=== PATIENT | male | born 1960 | race Caucasian/White ===

== ENCOUNTER 2019-10-17 03:30 | Observation (INO) | payer BC ==
[2019-10-17 04:23] LABS: #Eosinphils 0.3 thou/uL (0.0-0.7); #Lymphocytes 1.6 thou/uL (1.20-3.40); #Monocytes 1.1 thou/uL (0.11-0.59); #Neutrophils 11.8 thou/uL (1.40-6.50); %Basophils 0.3 % (0.0-1.0); %Eosinophils 1.8 % (0.0-10.0); %Lymphocytes 10.5 % (21.0-51.0); %Monocytes 7.4 % (0.0-10.0); %Neutrophils 79.9 % (42.0-75.0); Mean Corpuscular HGB CONC 32.8 g/dL (32.0-36.0); Mean Corpuscular Hemoglobin 31.5 pg (27.0-31.0); Mean Corpuscular Volume 95.9 fL (78.0-98.0); Mean Platelet Volume 6.9 fL (7.4-10.4); Platelet Count 240 thou/uL (130-400); RBC Distribution Width 12.8 % (11.5-14.5); Red Blood Cell (RBC) Count 4.13 mill/uL (4.70-6.10); White Blood Cell (WBC) Count 14.7 thou/uL (4.8-10.8)
[2019-10-17] MEDS ORDERED: Fentanyl 100 MCG/2 ML VIAL ONE (04:40)
[2019-10-17 04:45] LABS: ALT (SGPT) 23 U/L (8-55); AST (SGOT) 16 U/L (5-34); Albumin 3.6 g/dL (3.5-5.0); Alkaline Phosphatase 72 U/L (40-110); Anion Gap 13 mmol/L (10-20); BUN (Urea Nitrogen) 19 mg/dL (8.4-25.7); Bilirubin, Total 0.5 mg/dL (0.2-1.2); CK (CPK) 39 U/L (30-200); Calc. Creatinine Clearance 0 mL/min (70-130); Calcium 8.5 mg/dL (7.8-10.44); Carbon Dioxide 24 mmol/L (22-29); Chloride 106 mmol/L (98-107); Estimated GFR-MDRD 88; Globulin 2.1 g/dL (2.4-3.5); Glucose 93 mg/dL (70-105); Lipase 15 U/L (8-78); Potassium 3.8 mmol/L (3.5-5.1); Protein, Total 5.7 g/dL (6.0-8.3); Sodium 139 mmol/L (136-145)
[2019-10-17] MEDS ORDERED: Nitroglycerin 2% Ointment 1 INCH/1 GM Packet ONE (06:18)
--- NOTE | 2019-10-17 06:42 | PDOC.HHP ---
Hospitalist HPI - History of Present Illness chest pain History of Present Illness: Pateint is a 59 year old male with PMH HTN who presents to ED with acute onset L sided chest pain that awoke him from sleep, he was flown in by helicopter, pain began at 130am, improved with nitro by EMS, is still present at 3/10, no aggrevating or alleviating factors, no hisotry of CAD/cardiac history. had relatives with CAD. in ED here, tni negative, ekg reviewed NSR w/ RBBB 84 bpm no stemi. patient admitted for chest pain workup. of note ct performed, no acute findings that wuld cause this pain, however a gallstone seen and us abdomen was ordered. patient admitted to [facility] for further workup. BP was in 180s initially now improved. given ASA. Hospitalist ROS - Review of Systems Constitutional: denies: fever, chills Eyes: denies: pain, vision change ENT: denies: ear pain, mouth pain, mouth swelling Respiratory: denies: cough, dry, shortness of breath Cardiovascular: reports: chest pain. denies: palpitations, orthopnea Gastrointestinal: denies: nausea, vomiting Musculoskeletal: reports: shoulder pain (L shoulder). denies: neck pain Skin: denies: rash, lesions Neurological: denies: weakness, numbness All other systems reviewed; all pertinent +/- noted in HPI/Subj Hospitalist History - Past Medical History Other Medical History: htn - Past Surgical History Past Surgical History: reports: no pertinent history - Family History Other Family History: cad, pacemaker, valve replacement in 2nd degree relatives - Social History Smoking Status: Never smoker Alcohol: reports: Rare Drugs: reports: none - Exam General Appearance: NAD, awake alert Eye: PERRL, anicteric sclera ENT: normocephalic atraumatic, no oropharyngeal lesions, moist mucosa Neck: supple, symmetric, no JVD, no thyromegaly, no lymphadenopathy, no carotid bruit Heart: RRR, no murmur, no gallops, no rubs, normal peripheral pulses Respiratory: CTAB, no wheezes, no rales, no ronchi, normal chest expansion, no tachypnea, normal percussion Gastrointestinal: soft, non-tender, non-distended, normal bowel sounds, no palpable masses, no hepatomegaly, no splenomegaly, no bruit Extremities: no cyanosis, no clubbing, no edema Skin: normal turgor, no lesions, no rashes Neurological: cranial nerve grossly intact, normal sensation to touch, no weakness, no focal deficits, no new deficit Musculoskeletal: normal tone, normal strength, no muscle wasting Psychiatric: normal affect, normal behavior, A&O x 3 Hospitalist Results - Labs Result Diagrams: 10/17/19 04:14 10/17/19 04:14 Lab results: WBC 14.7 thou/uL (4.8-10.8) H 10/17/19 04:14 Hgb 13.0 g/dL (14.0-18.0) L 10/17/19 04:14 Hct 39.6 % (42.0-52.0) L 10/17/19 04:14 MCV 95.9 fL (78.0-98.0) 10/17/19 04:14 Plt Count 240 thou/uL (130-400) 10/17/19 04:14 Neutrophils % 79.9 % (42.0-75.0) H 10/17/19 04:14 Sodium 139 mmol/L (136-145) 10/17/19 04:14 Potassium 3.8 mmol/L (3.5-5.1) 10/17/19 04:14 Chloride 106 mmol/L (98-107) 10/17/19 04:14 Carbon Dioxide 24 mmol/L (22-29) 10/17/19 04:14 BUN 19 mg/dL (8.4-25.7) 10/17/19 04:14 Creatinine 0.88 mg/dL (0.7-1.3) 10/17/19 04:14 Glucose 93 mg/dL (70-105) 10/17/19 04:14 Calcium 8.5 mg/dL (7.8-10.44) 10/17/19 04:14 Total Bilirubin 0.5 mg/dL (0.2-1.2) 10/17/19 04:14 AST 16 U/L (5-34) 10/17/19 04:14 ALT 23 U/L (8-55) 10/17/19 04:14 Alkaline Phosphatase 72 U/L (40-110) 10/17/19 04:14 Creatine Kinase 39 U/L (30-200) 10/17/19 04:14 Troponin I 0.013 ng/mL (< 0.028) 10/17/19 04:14 B-Natriuretic Peptide Less than 10.0 pg/mL (0-100) 10/17/19 04:14 Serum Total Protein 5.7 g/dL (6.0-8.3) L 10/17/19 04:14 Albumin 3.6 g/dL (3.5-5.0) 10/17/19 04:14 Lipase 15 U/L (8-78) 10/17/19 04:14 - EKG Interpretation EKG: reviewed, NSR, RBBB, 84 bpm, no acute ST changes Hospitalist H&P A/P - Plan Plan: 59M admitted for: # chest pain - admit to telemetry - consult cardiology given continued chest pain, NPO - nitro patch - trend enzymes - ASA, statin, beta ling - control BP, nitro will probably help - telemetry - echo - gallstone on CT, follow up us abdomen though exam very benign and story not very consistent with gallbladder pain
--- NOTE | 2019-10-17 06:54 | CT ---
CTA THORAX WITH IV CONTRAST AND PE PROTOCOL AND 3D REFORMATTED IMAGING: INDICATIONS: A 59-year-old male with left sided chest pain. Concern for possible pulmonary embolus. FINDINGS: No central or segmental pulmonary embolus is evident. There is mild enlargement of the pulmonary tenzin marek, which may reflect sequela of underlying secondary pulmonary artery hypertension. There is mild centrilobular emphysema. There are areas of subsegmental volume loss involving both lower lobes, seen in a predominantly dependent fashion at the posterior aspects of both lower lobes. No air space cons olidation, pleural effusion or pneumothorax is evident. No enlarged lymph nodes are evident. There ar e coronary artery and thoracic aortic calcifications. The visualized upper abdomen demonstrates jaqueline l adrenal glands. There is a small punctate density within the gallbladder body, suspicious for a sma ll stone. No acute osseous abnormality is demonstrated. There is mild scattered degenerative and oste oarthritic change. IMPRESSION: 1. No central or segmental pulmonary embolus. 2. Mild emphysema. 3. Slight enlargement of the pulmonary arterial tree, which can be seen with secondary pulmonary tenzin ry hypertension. 4. Nonspecific subsegmental volume loss within both lower lobes. 5. Suspected cholelithiasis. POS: BH
[2019-10-17] MEDS ORDERED: Ondansetron ODT 4 MG TAB SL PRN (06:55)
[2019-10-17] MEDS ORDERED: Ondansetron PF 4 MG/2 ML Vial IVP PRN (06:55)
[2019-10-17] MEDS ORDERED: Sodium Chloride 0.9% 1,000 ML IV SCH (07:00)
[2019-10-17 07:47] LABS: Troponin I 0.018 ng/mL (< 0.028)
--- NOTE | 2019-10-17 07:51 | RAD ---
RADIOGRAPH CHEST 1 VIEW: DATE: 10/17/2019 TIME: 3:50 AM HISTORY: 59-year-old male with chest pain COMPARISON: none FINDINGS: Shallow inspiration. Nonspecific mild transverse linear densities at bilateral lung bases, probably s ubsegmental atelectasis or chronic changes. No consolidation. Upper lobes are relatively clear. No pneumothorax. Possible mild blunting of lateral costophrenic angles. Possible cardiomegaly.. IMPRESSION: 1. Limited study because of hypoinflated lungs. 2. Nonspecific mild changes at lung bases and lateral costophrenic angles. 3. A lateral view would be useful.
[2019-10-17] MEDS: Metoprolol Tartrate 25 MG TAB PO SCH ×2 (09:14→20:33)
[2019-10-17] MEDS: Aspirin 325 mg Enteric Coated Tablet PO SCH (09:14)
[2019-10-17 09:37] VITALS: BMI 29.9
[2019-10-17] MEDS: Morphine 2 MG/ML SYRINGE SLOW IVP PRN ×3 (10:05→20:34)
[2019-10-17] MEDS ORDERED: Iopamidol 370 76% 100 ML VIAL ONE (10:06)
[2019-10-17 10:42] LABS: Troponin I 0.016 ng/mL (< 0.028)
[2019-10-17] MEDS: Enoxaparin Sodium 40 MG/0.4 ML SYRINGE SC SCH (12:34)
--- NOTE | 2019-10-17 14:16 | CON ---
DATE OF CONSULTATION: 10/17/2019 REASON FOR CONSULTATION: Chest pain. HISTORY OF PRESENT ILLNESS: Mr. Ramirez is a very pleasant 59-year-old white gentleman, who comes to the hospital for chest pain. He was woken up at 1:30 a.m. overnight with chest pain. It was in the midsternal area and then it went up to his left shoulder. He thought he just slept on the side and had either pinched a nerve or pulled a muscle. Pain just continued to get worse and worse and worse, so he decided to come in as the pain was at a point 10/10. He received nitroglycerin spray and a nitroglycerin patch on the way in and he states that helped his pain, but his pain has not really gone away. He was admitted and ruled out with 3 negative troponins. BNP was undetectable. Cardiology has been consulted. On my evaluation, his pain is about 1/10. It is worse when he takes a deep breath, better if he does not take deep breaths, just shallow breaths, or if he stays still. He has never had any problems with his heart before. PAST MEDICAL HISTORY: Hypertension. PAST SURGICAL HISTORY: None. FAMILY HISTORY: CAD, valve replacement in some second-degree family members, and pacemaker. SOCIAL HISTORY: No tobacco or drugs. Social alcohol use only. REVIEW OF SYSTEMS: A 12-point review of systems was done and was all negative unless stated in history of present illness. OUTPATIENT MEDICATIONS: 1. Tylenol No. 3 p.r.n. 2. Tizanidine 4 mg a day. ALLERGIES: NO KNOWN DRUG ALLERGIES. PHYSICAL EXAMINATION: VITAL SIGNS: Temperature 99.2, pulse 89, respiratory rate 16, saturating 94% on room air, and blood pressure 109/56. GENERAL: Awake, alert, and oriented x3. No distress. HEENT: Normocephalic and atraumatic. NECK: Supple. LUNGS: Clear. CARDIOVASCULAR: S1 and S2. No S3 or S4. No murmurs. ABDOMEN: Soft. Positive bowel sounds. EXTREMITIES: No edema. SKIN: Warm and dry. DIAGNOSTIC STUDIES: Laboratory work was reviewed. CBC with a white count of 14, which is elevated; hemoglobin of 13; hematocrit 39; and platelet count 240. Chemistries were completely normal. LFTs were normal. Troponin was negative x3. BNP was undetectable. Albumin of 3.6. CT of the chest with contrast showed no evidence of pulmonary embolism. There is mild emphysema, enlargement of the pulmonary arterial tree secondary to mild pulmonary artery hypertension, volume loss within both lower lobes, and suspected cholelithiasis. EKG was reviewed, sinus rhythm with right bundle-branch block, with no ischemic changes. ASSESSMENT: 1. Chest pain, atypical. 2. Possible cholecystitis. 3. Elevated white count. PLAN: 1. We will risk stratify with a stress test and echo. 2. We would also recommend looking at his gallbladder for possible gallstone cholecystitis. Thank you for letting us to participate in the care of your patient. Further recommendations per results of testing. Job ID: [id number]
[2019-10-17] MEDS: Nitroglycerin 2% Ointment 1 INCH/1 GM Packet TOP SCH ×2 (15:56→22:15)
[2019-10-17] MEDS: Atorvastatin Calcium 40 MG TAB PO SCH (20:33)
[2019-10-18] MEDS: Melatonin 3 MG TAB PO PRN (00:20)
[2019-10-18] MEDS: diphenhydrAMINE 25 MG CAP PO PRN (01:57)
[2019-10-18 05:20] LABS: Anion Gap 12 mmol/L (10-20); BUN (Urea Nitrogen) 12 mg/dL (8.4-25.7); Band 1 % (5-11); Calc. Creatinine Clearance 136 mL/min (70-130); Calcium 8.8 mg/dL (7.8-10.44); Carbon Dioxide 24 mmol/L (22-29); Cardiac Risk 2.8 (Less than 4.5); Chloride 102 mmol/L (98-107); Cholesterol 142 mg/dl (< 200 Desired); Estimated GFR-MDRD Greater than 90; Glucose 101 mg/dL (70-105); HDL Cholesterol 50 mg/dL (>60 Neg Risk); Hemoglobin 12.6 g/dL (14.0-18.0); LDL Cholesterol, Calculated 82 mg/dL; Lymphocytes 23 % (21-51); MDiff Complete? YES; Mean Corpuscular HGB CONC 33.9 g/dL (32.0-36.0); Mean Corpuscular Hemoglobin 32.2 pg (27.0-31.0); Mean Corpuscular Volume 95.1 fL (78.0-98.0); Mean Platelet Volume 6.8 fL (7.4-10.4); Monocytes 7 % (0-10); Neutrophil 69 % (42-75); Platelet Count 224 thou/uL (130-400); Platelet Morphology Comment Appears Adequate; Potassium 3.9 mmol/L (3.5-5.1); RBC Distribution Width 12.6 % (11.5-14.5); Sodium 134 mmol/L (136-145); Triglycerides 50 mg/dL (Less than 150); White Blood Cell (WBC) Count 10.1 thou/uL (4.8-10.8)
[2019-10-18] MEDS: Nitroglycerin 2% Ointment 1 INCH/1 GM Packet TOP SCH ×3 (06:50→21:29)
--- NOTE | 2019-10-18 08:04 | ULT ---
ULTRASOUND ABDOMEN LIMITED: (RIGHT UPPER QUADRANT) DATE: 10/18/2019 HISTORY: 59-year-old male with upper abdominal pain and gallstone questioned on CT pulmonary angiogram. FINDINGS: Gallbladder: Normal wall thickness. No sludge identified. No pericholecystic fluid. A 9 x 3 mm hypere choic focus in the dependent portion of gallbladder lumen without shadowing. Liver: Normal parenchymal echogenicity. Right kidney: No hydronephrosis. Pancreas: Visualized, with no gross sonographic abnormality identified (although ultrasound is relati vely insensitive for the detection of pancreatic pathology compared to CT and MRI.). Common duct caliber: 4 mm. IMPRESSION: 1. Small gallstone versus gallbladder polyp. 2. No evidence of acute cholecystitis or biliary obstruction.
[2019-10-18] MEDS: Enoxaparin Sodium 40 MG/0.4 ML SYRINGE SC SCH (09:07)
[2019-10-18] MEDS: Aspirin 325 mg Enteric Coated Tablet PO SCH (09:07)
[2019-10-18] MEDS ORDERED: ADENOSINE 60 MG/20 ML VIAL ONE (09:40)
[2019-10-18] MEDS: Morphine 2 MG/ML SYRINGE SLOW IVP PRN ×3 (10:18→22:03)
--- NOTE | 2019-10-18 13:24 | NM ---
NUCLEAR MEDICINE CARDIAC MYOCARDIAL PERFUSION SPECT EJECTION FRACTION STUDY WALL MOTION CINE: DATE: 10/18/2019 HISTORY: 59-year-old hypertensive male presents with acute chest pain TECHNIQUE: Number of days: 2 Rest study: Technetium 99m-sestamibi (Cardiolite) dose: 28.3 mCi Pharmacologic stress: Adenosine dose: 57.7 mg Stress study: Technetium 99m-sestamibi (Cardiolite) dose: 32.6 mCi FINDINGS: CARDIAC (MYOCARDIAL PERFUSION) SPECT There are no reversible myocardial perfusion defects. EJECTION FRACTION STUDY Left ventricular EF = 69 % WALL MOTION CINE Normal IMPRESSION: No evidence of reversible ischemia.
[2019-10-18] MEDS: Metoprolol Tartrate 25 MG TAB PO SCH ×2 (13:59→20:35)
[2019-10-18] MEDS ORDERED: Mag-Al Plus 1200 MG/1200 MG/120 MG/30 ML UDCUP PO PRN (14:49)
[2019-10-18] MEDS ORDERED: Communication Order-Pharmacy FS SCH (16:30)
--- NOTE | 2019-10-18 16:32 | PDOC.CPN ---
- Subjective Date: 10/18/19 Time: 16:23 Interval history: He had his stress test and it was normal, his echo was unremarkable. He continues to have chest pain constant 09/24. - Review of Systems General: denies: fever/chills, weight/appetite/sleep changes, night sweats, fatigue Respiratory: denies: cough, congestion, shortness of breath, exercise intolerance Cardiovascular: reports: chest pain. denies: palpitation, edema, paroxysmal nocturnal dyspnea, orthopnea Gastrointestinal: denies: nausea, vomiting, diarrhea, constipation, abd pain, GI bleeding Musculoskeletal: denies: pain, tenderness, stiffness, swelling, arthritis/ arthralgias Neurological: denies: numbness, syncope, seizure, weakness - Objective Allergies/Adverse Reactions: Allergies Allergy/AdvReac Type Severity Reaction Status Date / Time No Known Drug Allergies Allergy Verified 10/17/19 10:41 Visit Medications: Current Medications Al Hydroxide/Mg Hydroxide (Maalox Plus) 30 ml PO DAILYPRN PRN PRN Reason: Heartburn or Indigestion Last Admin: 10/18/19 15:26 Dose: 30 ml Aspirin (Ecotrin) 325 mg PO DAILY [facility] Last Admin: 10/18/19 09:07 Dose: 325 mg Atorvastatin Calcium (Lipitor) 40 mg PO HS [facility] Last Admin: 10/17/19 20:33 Dose: 40 mg Diphenhydramine HCl (Benadryl) 25 mg PO HSPRN PRN PRN Reason: Itching & Insomnia Last Admin: 10/18/19 01:57 Dose: 25 mg Enoxaparin Sodium (Lovenox) 40 mg SC 0900 [facility] Last Admin: 10/18/19 09:07 Dose: 40 mg Sodium Chloride (Normal Saline 0.9%) 1,000 mls @ 100 mls/hr IV .Q10H [facility] Melatonin (Melatonin) 9 mg PO HS PRN PRN Reason: Insomnia Last Admin: 10/18/19 00:20 Dose: 9 mg Metoprolol Tartrate (Lopressor) 12.5 mg PO BID [facility] Last Admin: 10/18/19 13:59 Dose: 12.5 mg Miscellaneous Information (Communication Order-Pharmacy) 0 each FS ONE [facility] Morphine Sulfate (Morphine) 4 mg SLOW IVP Q4H PRN PRN Reason: Severe Pain (7-10) Last Admin: 10/18/19 10:18 Dose: 4 mg Nitroglycerin (Nitro-Bid 2% Ointment) 0.5 inch TOP Q8HR [facility] Last Admin: 10/18/19 14:02 Dose: Not Given Vital Signs & Weight: Vital Signs Temp Pulse Resp BP Pulse Ox 10/18/19 15:20 98.2 F 65 20 107/63 95 10/18/19 13:59 113/59 L 10/18/19 07:40 98.3 F 68 15 121/61 93 L 10/18/19 07:37 93 L Weight 227 lb - Physical Exam General: alert & oriented x3 HEENT: mucus membranes moist Neck: supple neck Cardiac: regular rate and rhythm Lungs: clear to auscultation Neuro: grossly intact Abdomen: active bowel sounds Extremities: no edema Skin: clear Musculoskeletal: no pain - Labs Result Diagrams: 10/18/19 04:34 10/18/19 04:34 Troponin/CKMB Troponin I 0.016 ng/mL (< 0.028) 10/17/19 10:10 - Telemetry Sinus rhythms and dysrhythmias: sinus rhythm - Assessment/Plan Assessment/Plan: 1. Chest pain 2. CAD, evidenced by coronary calcifications on CT chest. PLAN - He is bentley ving ongoing chest pain despite normal stress test and unremarkable echo. - Will have to completely rule out with LHC. - We spoke about risks and benefits and he agrees to proceed. Radial access, PHILIP if needed.
--- NOTE | 2019-10-18 20:11 | PDOC.HOSPP ---
- Subjective Encounter Date: 10/18/19 Subjective: Still complaining of chest pain. - Objective Vital Signs & Weight: Vital Signs (12 hours) Temp Pulse Resp BP Pulse Ox 10/18/19 20:02 98.4 F 71 18 120/59 L 98 10/18/19 15:20 98.2 F 65 20 107/63 95 10/18/19 13:59 113/59 L Weight Weight 227 lb I&O: 10/17/19 10/18/19 10/19/19 06:59 06:59 06:59 Intake Total 662 750 Balance 662 750 Result Diagrams: 10/18/19 04:34 10/18/19 04:34 Hospitalist ROS - Medication Medications: Active Medications Generic Name Dose Route Start Last Admin Trade Name Freq PRN Reason Stop Dose Admin Al Hydroxide/Mg Hydroxide 30 ml 10/18/19 14:49 10/18/19 15:26 Maalox Plus PO 30 ml DAILYPRN PRN Administration Heartburn or Indigestion Aspirin 325 mg 10/17/19 09:00 10/18/19 09:07 Ecotrin PO 325 mg DAILY [facility] Administration Atorvastatin Calcium 40 mg 10/17/19 21:00 10/17/19 20:33 Lipitor PO 40 mg HS [facility] Administration Diphenhydramine HCl 25 mg 10/18/19 01:36 10/18/19 01:57 Benadryl PO 25 mg HSPRN PRN Administration Itching & Insomnia Enoxaparin Sodium 40 mg 10/17/19 09:00 10/18/19 09:07 Lovenox SC 10/18/19 23:59 40 mg 0900 [facility] Administration Melatonin 9 mg 10/18/19 00:13 10/18/19 00:20 Melatonin PO 9 mg HS PRN Administration Insomnia Metoprolol Tartrate 12.5 mg 10/17/19 09:00 10/18/19 13:59 Lopressor PO 12.5 mg BID [facility] Administration Morphine Sulfate 4 mg 10/17/19 09:42 10/18/19 16:46 Morphine SLOW IVP 4 mg Q4H PRN Administration Severe Pain (7-10) Nitroglycerin 0.5 inch 10/17/19 14:00 10/18/19 14:02 Nitro-Bid 2% Ointment TOP Not Given Q8HR [facility]LL - Exam General Appearance: awake alert ENT: normocephalic atraumatic Neck: supple Heart: RRR Respiratory: CTAB Gastrointestinal: soft, non-tender, non-distended, normal bowel sounds Hosp A/P (1) Chest pain Code(s): R07.9 - CHEST PAIN, UNSPECIFIED Status: Acute - Plan Stress test negative. Cardiology planning cath tomorrow.
[2019-10-18] MEDS: Atorvastatin Calcium 40 MG TAB PO SCH (20:32)
[2019-10-19] MEDS: diphenhydrAMINE 25 MG CAP PO PRN (00:13)
[2019-10-19] MEDS: Melatonin 3 MG TAB PO PRN (00:17)
[2019-10-19] MEDS ORDERED: Sodium Chloride 0.9% 1,000 ML IV SCH (01:00)
[2019-10-19 05:43] LABS: Hemoglobin 13.4 g/dL (14.0-18.0); MDiff Complete? YES; Mean Corpuscular Hemoglobin 30.8 pg (27.0-31.0); Mean Corpuscular Volume 96.3 fL (78.0-98.0); Platelet Count 257 thou/uL (130-400); RBC Distribution Width 12.5 % (11.5-14.5); Red Blood Cell (RBC) Count 4.37 mill/uL (4.70-6.10); White Blood Cell (WBC) Count 8.9 thou/uL (4.8-10.8)
[2019-10-19 05:44] LABS: Band 1 % (5-11); Eosinophils 3 % (0-10); Lymphocytes 34 % (21-51); Monocytes 4 % (0-10); Neutrophil 58 % (42-75); Platelet Morphology Comment Appears Adequate; RBC Morphology Normal
[2019-10-19 05:50] LABS: Anion Gap 13 mmol/L (10-20); BUN (Urea Nitrogen) 12 mg/dL (8.4-25.7); Calc. Creatinine Clearance 136 mL/min (70-130); Calcium 8.9 mg/dL (7.8-10.44); Carbon Dioxide 22 mmol/L (22-29); Chloride 104 mmol/L (98-107); Estimated GFR-MDRD Greater than 90; Glucose 92 mg/dL (70-105); Potassium 4.2 mmol/L (3.5-5.1); Sodium 135 mmol/L (136-145)
[2019-10-19] MEDS: Nitroglycerin 2% Ointment 1 INCH/1 GM Packet TOP SCH ×2 (06:41→15:57)
[2019-10-19] MEDS: Metoprolol Tartrate 25 MG TAB PO SCH (08:07)
[2019-10-19] MEDS: Aspirin 325 mg Enteric Coated Tablet PO SCH (08:07)
[2019-10-19] MEDS ORDERED: Fentanyl 100 MCG/2 ML VIAL ONE (10:28)
[2019-10-19] MEDS ORDERED: Midazolam HCl 2 mg/2 ml Vial ONE (10:28)
[2019-10-19] MEDS ORDERED: Verapamil 5 MG/2 ML VIAL ONE (10:32)
[2019-10-19] MEDS ORDERED: Heparin 10,000 UNITS/1 ML VIAL ONE (10:32)
[2019-10-19] MEDS ORDERED: Nitroglycerin 100MG/250ML BOT 250 ML ONE (10:32)
[2019-10-19] MEDS ORDERED: Acetaminophen/Codeine 30-300mg Tablet PO PRN (10:54)
[2019-10-19] MEDS ORDERED: Sodium Chloride 0.9% 200 ML IV PRN (10:54)
[2019-10-19] MEDS ORDERED: Sodium Chloride 0.9% 500 ML IV SCH (11:00)
[2019-10-19] MEDS ORDERED: Aspirin 81 mg Enteric Coated Tablet PO SCH (11:00)
[2019-10-19 15:54] VITALS: BP 99/59; TEMP 98.4
[2019-10-20] MEDS ORDERED: Aspirin 81 mg Enteric Coated Tablet PO SCH (09:00)
--- NOTE | 2019-10-20 11:58 | DIS ---
DATE OF ADMISSION: 10/17/2019 DATE OF DISCHARGE: 10/19/2019 DISCHARGE DIAGNOSIS: Chest pain. DISCHARGE MEDICATIONS: 1. Aspirin 81 mg orally daily. 2. Atorvastatin 40 mg orally nightly. 3. Metoprolol tartrate 12.5 mg orally twice daily. 4. Protonix 40 mg orally daily. HISTORY OF PRESENT ILLNESS AND HOSPITAL COURSE: The patient is a 59-year-old male with past medical history of hypertension, who presented to the emergency department with acute onset of left-sided chest pain radiating to his left shoulder that woke him up from sleep and persisted since then. The patient was admitted to the hospital to rule out acute coronary syndrome. Serial troponins were obtained and were unremarkable. Nuclear pharmacological stress test was obtained, which did not show any evidence of ischemia. Subsequently, cardiac catheterization was performed due to persistent pain and risk factors, and showed mild mid LAD disease with 20% stenosis. No invasive intervention was done. The patient will be managed medically with aspirin, statin, metoprolol, and nitroglycerin. Job ID: [id number] [id number]
== END 2019-10-19 18:32 | disposition home or self-care (01) ==
LOC: ERS 03:30 → 2SE 05:51
PROVIDERS: ADMIT Internal Medicine; ATTEND Internal Medicine
PROC: 4A023N7 Measurement of Cardiac Sampling and Pressure, Left Heart, Percutaneous Approach (ICD-10-PCS; principal; 2019-10-19)
PROC: B2111ZZ Fluoroscopy of Multiple Coronary Arteries using Low Osmolar Contrast (ICD-10-PCS; 2019-10-19)
DX: R07.89 Other chest pain (principal); I10 Essential (primary) hypertension; I25.10 Atherosclerotic heart disease of native coronary artery without angina pectoris
CPT/HCPCS: 36415; 71045; 71275; 76705; 78452; 80048; 80053; 80061; 82550; 83690; 83880; 84484; 85007; 85025; 85027; 93005; 93017; 93306; 93458; 94760; 96361; 96372; 96374; 96375; 96376; 99152; A9500; C1769; G0378; J0153; J1644; J1650; J2250; J2270; J3010; Q0163; Q9967